=== PATIENT | male | born 1990 | race Caucasian/White ===

== ENCOUNTER → 2016-10-11 | Outpatient (CLI) | payer BC ==
[~2016-10-11] MED LIST: CLON1TAB3 PO; OXYSR10 PO
== END | disposition home or self-care (01) ==
LOC: C.LAB 17:48
PROVIDERS: ATTEND Psychiatry & Neurology Psychiatry
DX: F11.20 Opioid dependence, uncomplicated (principal)

== ENCOUNTER → 2017-01-14 | Outpatient (CLI) | payer BC ==
[2017-01-14 19:45] LABS: BENZODIAZEPINE, URINE NEG (NEG); COCAINE,URINE NEG (NEG); PHENCYCLIDINE, URINE NEG (NEG)
[2017-01-17 12:17] LABS: NORBUPRENORPHINE QNT 110 NG/ML (CUTOFF=2)
--- NOTE | 2017-01-18 10:12 | CODING QUERY MEDICAL NECESSITY ---
CQSUPPORTING DIAGNOSIS NEEDED A supporting diagnosis is required for the test/procedure performed on this patient in order for us to be reimbursed by the patient's insurance. Please provide a supporting diagnosis for the following test/procedure listed below next to the test name along with your signature. *If there is no additional diagnosis for this patient that would support the following test/procedure please document that below next to the test/procedure. Test(s)/Procedure(s) that require a supporting diagnosis: DOS 01/14/17 VITAMIN D TEST Provider Signature: Date: Thank you Katherine Farmer Health Information Management Once completed, please kindly fax back to [phone] For questions please call [phone]
== END ==
LOC: C.LAB 18:39
PROVIDERS: ATTEND Psychiatry & Neurology Psychiatry
DX: F33.1 Major depressive disorder, recurrent, moderate (principal); F11.20 Opioid dependence, uncomplicated; E03.9 Hypothyroidism, unspecified

== ENCOUNTER → 2017-07-04 | Outpatient (CLI) | payer BC ==
[2017-07-04 15:53] LABS: BENZODIAZEPINE, URINE NEG (NEG); COCAINE,URINE NEG (NEG); PHENCYCLIDINE, URINE NEG (NEG)
== END | disposition home or self-care (01) ==
LOC: C.LAB 14:07
PROVIDERS: ATTEND Psychiatry & Neurology Psychiatry
DX: Z51.81 Encounter for therapeutic drug level monitoring (principal); F11.20 Opioid dependence, uncomplicated; Z79.899 Other long term (current) drug therapy

== ENCOUNTER → 2017-07-29 | Outpatient (CLI) | payer BC | END | disposition home or self-care (01) | LOC: C.LAB 16:38 | PROVIDERS: ATTEND Psychiatry & Neurology Psychiatry | DX: F11.20 Opioid dependence, uncomplicated (principal) ==

== ENCOUNTER → 2017-11-15 | Outpatient (CLI) | payer OTHER ==
[2017-11-15 19:50] LABS: TOTAL PROTEIN 7.5 gm/dl (6.4-8.2)
== END | disposition home or self-care (01) ==
LOC: C.LAB 18:17
PROVIDERS: ATTEND Psychiatry & Neurology Psychiatry
DX: F11.20 Opioid dependence, uncomplicated (principal); Z79.899 Other long term (current) drug therapy

== ENCOUNTER 2024-01-02 21:55 | Inpatient (IN) ==
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
[2024-01-02] MEDS: HALOPERIDOL LACTATE 5 MG/ML 1 ML VIAL IM STA (22:55)
[2024-01-02] MEDS: LORazepam 2 MG/1 ML VIAL IM STA (22:55)
[2024-01-02] MEDS: diphenhydrAMINE 50 MG/ML VIAL IM STA (22:55)
[2024-01-02] MEDS: HALOPERIDOL LACTATE 5 MG/ML 1 ML VIAL ONE (23:02)
[2024-01-02] MEDS: diphenhydrAMINE 50 MG/ML VIAL ONE (23:02)
[2024-01-02] MEDS: LORazepam 1 MG/1 ML SYR ED Inj Use ONE (23:02)
[2024-01-02] MEDS: LORazepam 1 MG TAB SL STA (23:02)
[2024-01-03 00:29] LABS: Basophils # (auto) 0.02 K/uL (0.00-0.20); Basophils % (auto) 0.3 %; Eosinophils # (auto) 0.02 K/uL (0.00-0.50); Eosinophils % (auto) 0.3 %; Hemoglobin 16.4 g/dl (14.0-18.0); Immature Granulocytes # (auto) 0.01 K/uL (0.01-0.20); Immature Granulocytes % (auto) 0.2 %; Lymphocytes # (auto) 1.16 K/uL (1.20-3.40); Mean Corpuscular Hemoglobin 31.8 pg (25.0-34.0); Mean Corpuscular Hgb Conc 34.2 g/dL (32.0-36.0); Mean Corpuscular Volume 93.2 fL (80.0-100.0); Mean Platelet Volume 9.2 fL (9.4-12.4); Monocytes # (auto) 0.55 K/uL (0.11-0.59); Monocytes % (auto) 8.6 %; Neutrophils # (auto) 4.67 K/uL (1.40-6.50); Neutrophils % (auto) 72.6 %; Platelet Count 186 K/uL (130-400); RDW Coefficient of Variation 11.7 % (11.5-14.5); RDW Standard Deviation 40.4 fL (36.4-46.3); Red Blood Count 5.15 M/uL (4.70-6.10); White Blood Count 6.43 K/ul (4.8-10.8)
[2024-01-03 00:45] LABS: Albumin Globulin Ratio 1.8 (0.9-2); Albumin Level 4.2 gm/dl (3.4-5.0); BUN Creatinine Ratio 17.4 (10-20); Bilirubin,Total 0.8 mg/dl (0.2-1.0); Creatinine Clr Calc Pharmacy 98.2 ml/min; Est GFR (African American) 104.3 ml/min; Globulin 2.4 gm/dl (2.5-4.0); Potassium 3.4 mmol/L (3.5-5.1); Total Protein 6.6 gm/dl (6.0-8.3)
[2024-01-03 01:01] LABS: Thyroid Stimulating Hormone 3.18 uIu/ml (0.300-4.500)
[2024-01-03 01:18] LABS: Acetaminophen < 3 ug/ml (10-30); Salicylate < 3.0 mg/dl (3.0-30)
[2024-01-03 01:35] LABS: Appearance Urine Clear (Clear); Bilirubin Urine Negative (Negative); Blood Urine Negative (Negative); Color Urine Yellow; Glucose Urine UA Negative (Negative); Ketones Urine Negative (Negative); Leukocyte Esterase Urine Negative (Negative); Nitrite Urine Negative (Negative); Protein Urine Negative (Negative); Specific Gravity Urine 1.009 (1.000-1.030); Urobilinogen Urine Negative (Negative); pH Urine 5.5 (4.5-7.5)
[2024-01-03 01:54] LABS: Amphetamines+Metham, Urine Neg (Neg); Barbiturates, Urine Neg (Neg); Benzodiazepine, Urine Neg (Neg); Cocaine, Urine Neg (Neg); MDMA (Ecstacy), Urine Neg (Neg); Marijuana, Urine Neg (Neg); Methadone, Urine Neg (Neg); Opiate, Urine Neg (Neg); Phencyclidine, Urine Neg (Neg)
--- NOTE | 2024-01-03 08:33 | Emergency Department Note ---
ED Visit Note Patient signed out to me at change of shift from Dr. Rajan. Patient is a 302. He did require medication in order to help prevent any further escalation of his agitation and anxiety as he was uncooperative with staff and could not be verbally de-escalated or redirected. Following this he did sleep throughout my shift, vital signs otherwise stable. Patient was referred to [facility] for inpatient treatment, however psychiatry will evaluate the patient in the morning to determine appropriate placement. Patient signed out to Dr. Steele in the morning. .
[2024-01-03] MEDS ORDERED: SODIUM CHLORIDE 0.65% NA SOLN 45 ML (OCEAN) PRN (11:19)
[2024-01-03] MEDS ORDERED: hydrOXYzine HCl 25 MG TAB PO PRN ×2 (11:19)
[2024-01-03] MEDS ORDERED: BISMUTH SUBSALICYLATE LIQD 236 ML PO PRN (11:19)
[2024-01-03] MEDS ORDERED: ACETAMINOPHEN 325 MG TAB PO PRN (11:19)
[2024-01-03] MEDS ORDERED: MAGNESIUM HYDROXIDE SUSP 30 ML UDC PO PRN (11:19)
--- NOTE | 2024-01-03 11:19 | Emergency Department Note ---
ED Visit Note The patient was taken in signout from Dr. Schaefer at the change of shift. Please see that note for details. The patient was pending admission on a 302 warrant. Patient was evaluated. He was calm. He had questions about the process. I did inform him that he would need to be evaluated by psychiatry as an inpatient status and explained the 302 process. I gave my usual and customary discussion regarding this issue. Patient was evaluated by the [facility] psychiatric team in the emergency department. Patient was accepted for [facility] mental health inpatient treatment. .
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
[2024-01-03] MEDS: MAGNESIUM OXIDE 400 MG TAB PO SCH (21:53)
[2024-01-04] MEDS ORDERED: diphenhydrAMINE 50 MG/ML VIAL IM PRN (10:19)
[2024-01-04] MEDS ORDERED: LORazepam 2 MG/1 ML VIAL IM PRN (10:19)
[2024-01-04] MEDS ORDERED: HALOPERIDOL LACTATE 5 MG/ML 1 ML VIAL IM PRN (10:19)
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
[2024-01-05] MEDS: CEROVITE ADV FORMULA TAB PO SCH (08:34)
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
--- NOTE | 2024-01-06 09:17 | Psychiatric Progress Note ---
Date of Service January 06, 2024 Impression / Recommendations Impression Victorina is a 33 man with a history of depression, anxiety, substance use, trauma and possible paranoia with fixation on topics involving Hitler and WWII over the last 8-10 years who has become increasingly religiously preoccupied with delusions about a romantic partner and racist statements with a stockpile of weapons resulting in his parents filing a PFA against him admitted on a 302 involuntary commitment (Initialized on 01/03/24 10:52), which if not extended, will on 01/07/24 at 2231. Diagnostically uncertain but differential for unspecified psychosis is broad including schizophrenia vs mood episode of johanna vs substance induced or withdrawal (though he denies any recent use and UDS negative) vs ASD vs fixed delusional disorder. 01/05/2024:Presentation remains most consistent with unspecified psychosis. Unclear if schizotypal personality disorder component given reports of more chronic difficulty attending to his hygiene and basic needs vs MDD with psychotic features vs schizophrenia vs mixed mood episode vs delusional disorder. Collateral information notable for his recent statements of paranoia and delusions including: "We are pure white not half [place] these filthy race traitors tried to put a curse on me by naming me Mohamed" as well as making statements suggestive of possible violence or retaliation such as stating in a text that "they are definitely going to pay for this" seemingly referencing his parents. Also made statements which are concerning in the context of his sudden hyperreligious beliefs and fixation on guns and ammunition saying "I have no fear" and "I killed my fear". Seems that his complex trauma response may be leading him to feel a need to protect himself and his future family versus secondary to paranoia and delusions about what it means to be a romantic partner or male role in a family versus delusional disorder with paranoia given he had reported hearing messages from God about his need to protect himself and his future family. Given that he has purchased weapons and recently bought a ring, even though he has no partner, it raises concern for what other actions he may take in response to auditory hallucinations/delusions about temple messages p articularly in context of paranoia and increased focus on race and beliefs that certain populations, i.e. those of white race, have been mistreated. Overall given these ongoing concerns about elevated acute violence risk and his lack of insight and lack of interest in any type of medication treatment a 303 commitment was completed due to concern for harm to others and potentially himself. MNPR due to recent racist statements, delusions and concern for violence potential given current PFA Overall, I spent a total of 110 minutes on this case including meeting with the patient, reviewing the chart, nursing report, multidisciplinary team meeting, orders, documentation, completing 303 commitment paperwork and listening to collateral from patient's sister. (1) Unspecified psychosis not due to a substance or known physiological condition: (2) Paranoia: (3) Tic disorder: Plan 01/06/2024: -303 commitment paperwork completed, hearing to be held tomorrow -Continue to recommend antipsychotic medication trial, he declines this 01/05/2024: -Recommended trial of olanzapine, he refuses this and no behaviors to meet threshold for medication over objection 01/04/2024: -Declines starting any psychiatric medication -Haldol, Benadryl and Ativan IM prn ordered in case of behavioral emergency for agitation/aggression -Multivitamin started 01/03/2024: The patient was admitted to the [facility] ([facility] unit) on q15 min checks (behavioral with suicide precautions) for safety. The patient will participate in group, recreational, and milieu therapies and will be offered additional individual and family sessions as clinically appropriate. The patient remains hospitalized on a completed 302 involuntary commitment (Initialized on 01/03/24 10:52), which if not extended, will on 01/07/24 at 2231. Suicide Risk Level Suicide Risk Level: Moderate (q15 min suicide checks) (He denies any SI but recent behavior changes and delusions increase risk) Risk Factors Assessment Male: Yes : Yes Do You Have Access To A Gun?: Yes ("police took them for now") Mental Health Diagnoses: Yes Protective Factors Assessment Employed: No Interval History Identifying Information VICTORINA FRANK is a 33-year-old M who currently lives in with his parents has an unclear psychiatric history, brought in by police on a warrant and was admitted on 01/03/24 10:49 on a 302/ involuntary commitment for concerning statements and behaviors including having a large amount of weapons. Chief Complaint "I don't want to take any medication". Review of Systems Sleep Information Total Hours of Sleep: 6 Sleep Comments: No PRN medications Meal Information Percent Meal Consumed - Breakfast: 100 Percent Meal Consumed - Lunch: 100 Percent Meal Consumed - Dinner: 100 Subjective Subjective Patient was seen & assessed and interval progress reviewed with treatment team nursing and social work. Has been interacting with his peers appropriately. Woke up around 5AM but then went back to sleep. Declined to sign any paperwork related to his treatment plan or consent for hospital treatment as he doesn't feel he should be in the hospital. Today discussed that I would be filing for 303 commitment and he was provided with his rights and information for public health technologist's office. He would like to participate in the hearing tomorrow. Continues to feel that he is not experiencing any delusions or paranoia or psychosis. Does not want to take any medication. Thanks me for meeting with him. Physical Exam Psychiatric Orientation: alert and oriented x 3 Apperance: appropriately dressed Eye Contact: good eye contact Motor Behavior: + abnormal motor movements (mouth and neck tic) Speech: normal rate/rhythm/volume of speech Affect: + mood not congruent with affect (smiles oddly) Mood: no irritable mood Thought Process: + circumstantial thought process Thought Content: + paranoid and + delusions (hyperreligious, believes getting messages from God) Suicidal Thoughts: denies suicidal thoughts Homicidal Thoughts: denies homicidal thoughts (but recently made concerning statements and fixated on race) Hallucinations: no auditory hallucinations and no visual hallucinations Insight: + severely impaired insight Judgment: + limited judgement Vital Signs (Past 24 Hours) Last Vital Signs Temp 36.9 C 01/06/24 06:45 Pulse 82 01/06/24 06:47 Resp 18 01/06/24 06:45 BP 145/87 H 01/06/24 06:47 Pulse Ox 99 01/05/24 06:00 O2 Del Method Room Air 01/05/24 06:00 Results & Data ([facility]) Current Inpatient Medications Current Inpatient Medications: Current Inpatient Medications Acetaminophen (Acetaminophen 325 Mg Tab) 650 mg PO Q4H PRN PRN Reason: Headache or Minor Fever Stop: 02/02/24 11:18 Al Hydrox/Mg Hydrox/Simethicone (Aluminum/Magnesium Susp 30 Ml Udc) 30 ml PO Q4H PRN PRN Reason: GI Upset Stop: 02/02/24 11:18 Bismuth Subsalicylate (Bismuth Subsalicylate Liqd 236 Ml) 15 ml PO PRN PRN PRN Reason: Loose Stool Stop: 02/02/24 11:18 Diphenhydramine HCl (Diphenhydramine 50 Mg/Ml Vial) 50 mg IM BID PRN PRN Reason: Agitation Stop: 02/03/24 10:18 Haloperidol Lactate (Haloperidol Lactate 5 Mg/Ml 1 Ml Vial) 5 mg IM BID PRN PRN Reason: Agitation Stop: 02/03/24 10:18 Hydroxyzine HCl (Hydroxyzine Hcl 25 Mg Tab) 50 mg PO HSZ PRN PRN Reason: Insomnia Stop: 02/02/24 11:18 Hydroxyzine HCl (Hydroxyzine Hcl 25 Mg Tab) 25 mg PO Q4H PRN PRN Reason: Anxiety Stop: 02/02/24 11:18 Lorazepam (Lorazepam 2 Mg/1 Ml Vial) 2 mg IM BID PRN PRN Reason: Agitation Stop: 02/03/24 10:18 Magnesium Hydroxide (Magnesium Hydroxide Susp 30 Ml Udc) 30 ml PO DAILY PRN PRN Reason: Constipation Stop: 02/02/24 11:18 Magnesium Oxide (Magnesium Oxide 400 Mg Tab) 400 mg PO HS KARLEY Stop: 02/02/24 21:59 Last Admin: 01/05/24 21:02 Dose: 400 mg Multivitamins/Minerals (Cerovite Adv Formula Tab) 1 tab PO QAM KARLEY Stop: 02/04/24 08:59 Last Admin: 01/06/24 08:37 Dose: 1 tab Sodium Chloride (Sodium Chloride 0.65% Na Soln 45 Ml ([place])) 1 - 2 sprays NA PRN PRN PRN Reason: Nasal Dryness/Congestion Stop: 02/02/24 11:18 Mental Health & Subst Abuse Tx Psychiatrist Name of Psychiatrist: Dr Savage Psychiatrist's Therapist Name of Therapist: None Yarn Finisher Name of Yarn Finisher: None Post Discharge Appointments Primary Care Physician Name Of Family Doctor/PCP: N/A Contact Information Discharge Discharge Address: [address] [place] [id number]
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
--- NOTE | 2024-01-08 09:10 | Psychiatric Progress Note ---
Date of Service January 08, 2024 Impression / Recommendations Vishal Ordonez is a 33 man with a history of depression, anxiety, substance use, trauma and possible paranoia with fixation on topics involving Hitler and WWII over the last 8-10 years who has become increasingly religiously preoccupied with delusions about a romantic partner and racist statements with a stockpile of weapons resulting in his parents filing a PFA against him admitted on a 302 involuntary commitment and now on a 303 commitment. Diagnostically uncertain but differential for unspecified psychosis is broad including schizophrenia vs mood episode of johanna vs substance induced or withdrawal (though he denies any recent use and UDS negative) vs ASD vs delusional disorder vs complex PTSD vs schizotypal personality disorder. 01/08/2024: Ongoing odd statements, paranoia and preoccupation with Nazi [place]. Ongoing psychotic process with high risk for violence, continue to monitor patient's behavior, thoughts, and interactions with others. He continues to refuse antipsychotic medication. Continue to re-evaluate for criteria for medication over objection, doesn't meet criteria currently. Ongoing motivational interviewing regarding medication and insight-oriented and open dialogue approach. Poor judgment and boundary issues addressed, the issue of inappropriate Nazi symbolism in the group room discussed; patient agreed not to display such items in shared spaces. Continue to monitor patient's interactions with others and provide guidance on maintaining appropriate boundaries. We'll continue to educate the patient as needed on the potential impact of their actions on other patients and the importance of creating a safe environment for all. MNPR due to recent racist statements, delusions and concern for violence potential given current PFA Overall, I spent a total of 35 minutes on this case including meeting with the patient, reviewing the chart, nursing report, multidisciplinary team meeting, orders, and documentation. (1) Unspecified psychosis not due to a substance or known physiological condition: (2) Paranoia: (3) Tic disorder: Plan 01/08/2024: Continues to refuse antipsychotic medication trial. 01/07/2024: He continues to refuse antipsychotic medication trial which is the recommendation. 01/06/2024: -303 commitment paperwork completed, hearing to be held tomorrow -Continue to recommend antipsychotic medication trial, he declines this 01/05/2024: -Recommended trial of olanzapine, he refuses this and no behaviors to meet threshold for medication over objection 01/04/2024: -Declines starting any psychiatric medication -Haldol, Benadryl and Ativan IM prn ordered in case of behavioral emergency for agitation/aggression -Multivitamin started 01/03/2024: The patient was admitted to the [facility] ([facility]) on q15 min checks (behavioral with suicide precautions) for safety. The patient will participate in group, recreational, and milieu therapies and will be o ffered additional individual and family sessions as clinically appropriate. The patient remains hospitalized on a completed 302 involuntary commitment (Initialized on 01/03/24 10:52), which if not extended, will on 01/07/24 at 2231. Suicide Risk Level Suicide Risk Level: Moderate (q15 min suicide checks) (He denies any SI but re cent behavior changes and delusions increase risk) Risk Factors Assessment Male: Yes : Yes Do You Have Access To A Gun?: Yes ("police took them for now") Mental Health Diagnoses: Yes Protective Factors Assessment Employed: No Interval History Identifying Information VICTORINA FRANK is a 33-year-old M who currently lives in with his parents has an unclear psychiatric history, brought in by police on a warrant and was admitted on 01/03/24 10:49 on a 302/ involuntary commitment for concerning statements and behaviors including having a large amount of weapons. Chief Complaint "Yeah it's a World War II seal. It's just art". Review of Systems Sleep Information Total Hours of Sleep: 5.75 Sleep Comments: No PRN medications Meal Information Percent Meal Consumed - Breakfast: 90 Percent Meal Consumed - Lunch: 100 Percent Meal Consumed - Dinner: 100 Subjective Subjective Patient was seen & assessed and interval progress reviewed with treatment team nursing and social work. Yesterday evening asking nurse for her badge so he could leave unit. Had a visitor from his anglican. Poor boundaries with female peer. Refused to sign his treatment team paperwork. He reports having slept well the previous night but appears tired. He expresses concern about feeling locked up due to his political beliefs. He acknowledges drawing on an origami animal with Nazi symbols and claims it is just art. He is willing to discuss the potential impact of his actions on others but doesn't see how this could be upsetting to others. When he is asked "Have you thought about how that might affect someone who is Adventism?" he replies "We could talk about it" and then agrees not to place such items in the group room. However he then asks if he is being kept for his political beliefs. Again discuss concerns for psychosis and paranoia and violence risk as reason for his hospitalization. He questions the need for antipsychotic medication and seeks clarification on the changes that would be observed if he took it. He continues to feel he is not experiencing any paranoia nor behavior changes nor delusions and that all recent changes are due to "My behavior changed because I defeated a lot of anxieties that were paralyzing me." He denies any inappropriate interactions with others though we discuss he seemed to have poor boundaries with a female peer yesterday which he disagrees with. He remains fixated on discharge and expresses disagreement with my assessment. Physical Exam Psychiatric Orientation: alert and oriented x 3 Apperance: appropriately dressed Eye Contact: good eye contact Motor Behavior: + abnormal motor movements (mouth and neck tic) Speech: normal rate/rhythm/volume of speech Affect: + mood not congruent with affect (smiles oddly) Mood: + irritable mood Thought Process: + circumstantial thought process Thought Content: + preoccupation ([place], Nazi and white supremacy themes), + paranoid and + delusions (hyperreligious) Suicidal Thoughts: denies suicidal thoughts Homicidal Thoughts: denies homicidal thoughts (but recently made concerning statements and fixated on race) Hallucinations: no auditory hallucinations and no visual hallucinations Insight: + severely impaired insight Judgment: + limited judgement Vital Signs (Past 24 Hours) Last Vital Signs Temp 36.8 C 01/08/24 06:34 Pulse 76 01/08/24 06:34 Resp 18 01/08/24 06:34 BP 147/85 H 01/08/24 06:34 Pulse Ox 99 01/05/24 06:00 O2 Del Method Room Air 01/05/24 06:00 Results & Data ([facility]) Current Inpatient Medications Current Inpatient Medications: Current Inpatient Medications Acetaminophen (Acetaminophen 325 Mg Tab) 650 mg PO Q4H PRN PRN Reason: Headache or Minor Fever Stop: 02/02/24 11:18 Al Hydrox/Mg Hydrox/Simethicone (Aluminum/Magnesium Susp 30 Ml Udc) 30 ml PO Q4H PRN PRN Reason: GI Upset Stop: 02/02/24 11:18 Bismuth Subsalicylate (Bismuth Subsalicylate Liqd 236 Ml) 15 ml PO PRN PRN PRN Reason: Loose Stool Stop: 02/02/24 11:18 Diphenhydramine HCl (Diphenhydramine 50 Mg/Ml Vial) 50 mg IM BID PRN PRN Reason: Agitation Stop: 02/03/24 10:18 Haloperidol Lactate (Haloperidol Lactate 5 Mg/Ml 1 Ml Vial) 5 mg IM BID PRN PRN Reason: Agitation Stop: 02/03/24 10:18 Hydroxyzine HCl (Hydroxyzine Hcl 25 Mg Tab) 50 mg PO HSZ PRN PRN Reason: Insomnia Stop: 02/02/24 11:18 Hydroxyzine HCl (Hydroxyzine Hcl 25 Mg Tab) 25 mg PO Q4H PRN PRN Reason: Anxiety Stop: 02/02/24 11:18 Lorazepam (Lorazepam 2 Mg/1 Ml Vial) 2 mg IM BID PRN PRN Reason: Agitation Stop: 02/03/24 10:18 Magnesium Hydroxide (Magnesium Hydroxide Susp 30 Ml Udc) 30 ml PO DAILY PRN PRN Reason: Constipation Stop: 02/02/24 11:18 Magnesium Oxide (Magnesium Oxide 400 Mg Tab) 400 mg PO HS KARLEY Stop: 02/02/24 21:59 Last Admin: 01/07/24 21:19 Dose: 400 mg Multivitamins/Minerals (Cerovite Adv Formula Tab) 1 tab PO QAM KARLEY Stop: 02/04/24 08:59 Last Admin: 01/08/24 08:52 Dose: 1 tab Sodium Chloride (Sodium Chloride 0.65% Na Soln 45 Ml ([place])) 1 - 2 sprays NA PRN PRN PRN Reason: Nasal Dryness/Congestion Stop: 02/02/24 11:18 Mental Health & Subst Abuse Tx Psychiatrist Name of Psychiatrist: Dr Savage Psychiatrist's Therapist Name of Therapist: None Controller [place] Name of Controller [place]: None Post Discharge Appointments Primary Care Physician Name Of Family Doctor/PCP: N/A Contact Information Discharge Discharge Address: [address] [place] [address], [id number]
--- NOTE | 2024-01-09 08:55 | Psychiatric Progress Note ---
Date of Service January 09, 2024 Impression / Recommendations Vishal Ordonez is a 33 man with a history of depression, anxiety, substance use, trauma and possible paranoia with fixation on topics involving Hitler and WWII over the last 8-10 years who has become increasingly religiously preoccupied with delusions about a romantic partner and racist statements with a stockpile of weapons resulting in his parents filing a PFA against him admitted on a 302 involuntary commitment and now on a 303 commitment. Diagnostically uncertain but differential for unspecified psychosis is broad including schizophrenia vs mood episode of johanna vs substance induced or withdrawal (though he denies any recent use and UDS negative) vs ASD vs delusional disorder vs complex PTSD vs schizotypal personality disorder. 01/09/2024: Continues to have paranoia, which is more prominent during our conversation today, and seems to be increasing as his irritability increases due to ongoing hospitalization. Continues to refuse to consider any antipsychotic medication. Discussed options including but not limited to abilify and olanzapine. He declined all options we discussed. Discussed that I would be starting olanzapine and that he can refuse if he chooses to. Reviewed side effects including but not limited to: sedation, weight gain, metabolic side effects, movement side effects. If he becomes agreeable to consistently taking this will order fasting glucose and lipid panel and complete AIMS, currently he is very suspicious of bloodwork. MNPR due to recent racist statements, delusions and concern for violence potential given current PFA Overall, I spent a total of 40 minutes on this case including meeting with the patient, reviewing the chart, nursing report, multidisciplinary team meeting, orders, and documentation. (1) Unspecified psychosis not due to a substance or known physiological condition: (2) Paranoia: (3) Tic disorder: Plan 01/09/2024: -Consult placed for pastoral care -Starting olanzapine ODT 5mg HS 01/08/2024: Continues to refuse antipsychotic medication trial. 01/07/2024: He continues to refuse antipsychotic medication trial which is the recommendation. 01/06/2024: -303 commitment paperwork completed, hearing to be held tomorrow -Continue to recommend antipsychotic medication trial, he declines this 01/05/2024: -Recommended trial of olanzapine, he refuses this and no behaviors to meet threshold for medication over objection 01/04/2024: -Declines starting any psychiatric medication -Haldol, Benadryl and Ativan IM prn ordered in case of behavioral emergency for agitation/aggression -Multivitamin started 01/03/2024: The patient was admitted to the [facility] ([facility] mental health unit) on q15 min checks (behavioral with suicide precautions) for safety. The patient will participate in group, recreational, and milieu therapies and will be offered additional individual and family sessions as clinically appropriate. The patient remains hospitalized on a completed 302 involuntary commitment (Initialized on 01/03/24 10:52), which if not extended, will on 01/07/24 at 2231. Suicide Risk Level Suicide Risk Level: Moderate (q15 min suicide checks) (He denies any SI but recent behavior changes and delusions increase risk) Risk Factors Assessment Male: Yes : Yes Do You Have Access To A Gun?: Yes ("police took them for now") Mental Health Diagnoses: Yes Protective Factors Assessment Employed: No Interval History Identifying Information VICTORINA FRANK is a 33-year-old M who currently lives in with his parents has an unclear psychiatric history, brought in by police on a warrant and was admitted on 01/03/24 10:49 on a 302/ involuntary commitment for concerning statements and behaviors including having a large amount of weapons. Chief Complaint "Not too bad". Review of Systems Sleep Information Total Hours of Sleep: 5.75 Sleep Comments: No PRN medications Meal Information Percent Meal Consumed - Breakfast: 100 Percent Meal Consumed - Lunch: 100 Percent Meal Consumed - Dinner: 100 Subjective Subjective Patient was seen & assessed and interval progress reviewed with treatment team nursing and social work. This morning irritable with RN. He reports feeling restless and confined on the unit, expressing a desire to have his cell phone with him. Reviewed again that this is against unit policy but that we would be happy to provide him with any phone numbers he needs. He inquires about ordering personal items like clothes, books and CDs to be delivered from [facility] during his stay. He discusses his history of sleep issues and use of medication for sleep induction in the past. He recalls a period when he stopped dreaming while on those medications and felt the quality of sleep was poor. Currently he reports difficulty achieving a full night's sleep but feels the quality is normal when he does sleep. Patient expresses dislike for antipsychotic medications and is not interested in starting any. I reviewed various options within the class for which he was not interested, discussed that I will be ordering olanzapine and that it is his right to decline this if he chooses to do so. He is also seeking legal representation for an upcoming PFA hearing, having reached out to multiple hoop expander but not secured one yet. Patient is aware he will likely miss the hearing due to hospitalization and plans to discuss options with associate professor of counseling. Reviewed that we could help provide him with any numbers for hoop expander or legal contracts specialist offices should he desire this. He also asked to speak with the hospital civil attorney who represented the hospital during his 303 commitment. Discussed with him that this was a conflict of interest and that he should reach out to his public relations intern, for whom he has the number, or we could provide him with other laywers contact information should he choose to hire his own representation. He asks me if I have been looking in his journal, when told no, he tells me he asked because he felt items in his room had been moved. Also attempts to query me about another patient who he believed may have been Yazidi and tells me "I shook his hand when he left". Wonders if not everyone is being "open" and asked to expand tells me this is because he discovered he cannot attend the [employer] mission trip and feels like things are being kept from him. Asks me if I've spoken with the FBI. He also requests to speak with the group program manager and requested to speak with a Radiology Assistant. Offered for group program manager to meet with him and discussed I would place consult for Pastoral Care which he is appreciative of. Physical Exam Psychiatric Orientation: alert and oriented x 3 Apperance: appropriately dressed Eye Contact: good eye contact Motor Behavior: + abnormal motor movements (mouth and neck tic) Speech: normal rate/rhythm/volume of speech Affect: + mood not congruent with affect (smiles oddly) Mood: + irritable mood Thought Process: + circumstantial thought process Thought Content: + preoccupation ([place], Nazi and white supremacy themes), + paranoid and + delusions (hyperreligious) Suicidal Thoughts: denies suicidal thoughts Homicidal Thoughts: denies homicidal thoughts (but recently made concerning statements and fixated on race) Hallucinations: no auditory hallucinations and no visual hallucinations Insight: + severely impaired insight Judgment: + limited judgement Vital Signs (Past 24 Hours) Last Vital Signs Temp 36.5 C 01/09/24 04:41 Pulse 76 01/09/24 04:41 Resp 18 01/09/24 04:41 BP 128/84 01/09/24 04:43 Pulse Ox 95 01/09/24 04:41 O2 Del Method Room Air 01/09/24 04:41 Results & Data ([facility] [[email or web address] Current Inpatient Medications Current Inpatient Medications: Current Inpatient Medications Acetaminophen (Acetaminophen 325 Mg Tab) 650 mg PO Q4H PRN PRN Reason: Headache or Minor Fever Stop: 02/02/24 11:18 Al Hydrox/Mg Hydrox/Simethicone (Aluminum/Magnesium Susp 30 Ml Udc) 30 ml PO Q4H PRN PRN Reason: GI Upset Stop: 02/02/24 11:18 Bismuth Subsalicylate (Bismuth Subsalicylate Liqd 236 Ml) 15 ml PO PRN PRN PRN Reason: Loose Stool Stop: 02/02/24 11:18 Diphenhydramine HCl (Diphenhydramine 50 Mg/Ml Vial) 50 mg IM BID PRN PRN Reason: Agitation Stop: 02/03/24 10:18 Haloperidol Lactate (Haloperidol Lactate 5 Mg/Ml 1 Ml Vial) 5 mg IM BID PRN PRN Reason: Agitation Stop: 02/03/24 10:18 Hydroxyzine HCl (Hydroxyzine Hcl 25 Mg Tab) 50 mg PO HSZ PRN PRN Reason: Insomnia Stop: 02/02/24 11:18 Hydroxyzine HCl (Hydroxyzine Hcl 25 Mg Tab) 25 mg PO Q4H PRN PRN Reason: Anxiety Stop: 02/02/24 11:18 Lorazepam (Lorazepam 2 Mg/1 Ml Vial) 2 mg IM BID PRN PRN Reason: Agitation Stop: 02/03/24 10:18 Magnesium Hydroxide (Magnesium Hydroxide Susp 30 Ml Udc) 30 ml PO DAILY PRN PRN Reason: Constipation Stop: 02/02/24 11:18 Magnesium Oxide (Magnesium Oxide 400 Mg Tab) 400 mg PO HS KARLEY Stop: 02/02/24 21:59 Last Admin: 01/08/24 21:14 Dose: 400 mg Multivitamins/Minerals (Cerovite Adv Formula Tab) 1 tab PO QAM KARLEY Stop: 02/04/24 08:59 Last Admin: 01/09/24 08:31 Dose: 1 tab Sodium Chloride (Sodium Chloride 0.65% Na Soln 45 Ml ([place])) 1 - 2 sprays NA PRN PRN PRN Reason: Nasal Dryness/Congestion Stop: 02/02/24 11:18 Mental Health & Subst Abuse Tx Psychiatrist Name of Psychiatrist: Dr Savage Psychiatrist's Therapist Name of Therapist: None Courtesy Van Driver Name of Courtesy Van Driver: None Post Discharge Appointments Primary Care Physician Name Of Family Doctor/PCP: N/A Contact Information Discharge Discharge Address: [facility] [address] [facility], [address]
[2024-01-09] MEDS: ALUMINUM/MAGNESIUM SUSP 30 ML UDC PO PRN (13:05)
[2024-01-09] MEDS ORDERED: ACETAMINOPHEN 325 MG TAB PO PRN (17:08)
[2024-01-09] MEDS: OLANZapine ZYDIS 5 MG ORALLY DIS. TAB PO SCH (21:09)
--- NOTE | 2024-01-10 09:08 | Psychiatric Progress Note ---
Date of Service January 10, 2024 Impression / Recommendations Vishal Ordonez is a 33 man with a history of depression, anxiety, substance use, trauma and possible paranoia with fixation on topics involving Hitler and WWII over the last 8-10 years who has become increasingly religiously preoccupied with delusions about a romantic partner and racist statements with a stockpile of weapons resulting in his parents filing a PFA against him admitted on a 302 involuntary commitment and now on a 303 commitment. Diagnostically uncertain but differential for unspecified psychosis is broad including schizophrenia vs mood episode of johanna vs substance induced or withdrawal (though he denies any recent use and UDS negative) vs ASD vs delusional disorder vs complex PTSD vs schizotypal personality disorder. 01/10/2024: Continues to present with unspecified psychosis though behavior has been fairly organized. He prefers to independently manage logistics related to his PFA hearing on Saturday and was allowed use of the unit phone and nursing support via HELADIO to fax paperwork on his behalf. He refused scheduled olanzapine. Continues to minimize recent events and concern of others. Remains suspicious of signing any paperwork but did sign limited HELADIO to allow for court paperwork to be faxed. MNPR due to recent racist statements, delusions and concern for violence potential given current PFA Overall, I spent a total of 36 minutes on this case including meeting with the patient, reviewing the chart, nursing report, multidisciplinary team meeting, orders, and documentation. (1) Unspecified psychosis not due to a substance or known physiological condition: (2) Paranoia: (3) Tic disorder: Plan 01/10/2024: Continue olanzapine (he is refusing this) and treatment plan. 01/09/2024: -Consult placed for pastoral care -Starting olanzapine ODT 5mg HS 01/08/2024: Continues to refuse antipsychotic medication trial. 01/07/2024: He continues to refuse antipsychotic medication trial which is the recommendation. 01/06/2024: -303 commitment paperwork completed, hearing to be held tomorrow -Continue to recommend antipsychotic medication trial, he declines this 01/05/2024: -Recommended trial of olanzapine, he refuses this and no behaviors to meet threshold for medication over objection 01/04/2024: -Declines starting any psychiatric medication -Haldol, Benadryl and Ativan IM prn ordered in case of behavioral emergency for agitation/aggression -Multivitamin started 01/03/2024: The patient was admitted to the [facility] ([facility] [place] [facility]) on q15 min checks (behavioral with suicide precautions) for safety. The patient will participate in group, recreational, and milieu therapies and will be offered additional individual and family sessions as clinically appropriate. The patient remains hospitalized on a completed 302 involuntary commitment (Initialized on 01/03/24 10:52), which if not extended, will on 01/07/24 at 2231. Suicide Risk Level Suicide Risk Level: Moderate (q15 min suicide checks) (He denies any SI but recent behavior changes and delusions increase risk) Risk Factors Assessment Male: Yes : Yes Do You Have Access To A Gun?: Yes ("police took them for now") Mental Health Diagnoses: Yes Protective Factors Assessment Employed: No Interval History Identifying Information JOSÉ LUIS FRANK is a 33-year-old M who currently lives in with his parents has an unclear psychiatric history, brought in by police on a warrant and was admitted on 01/03/24 10:49 on a 302/ involuntary commitment for concerning statements and behaviors including having a large amount of weapons. Chief Complaint "Not bad". Review of Systems Sleep Information Total Hours of Sleep: 6.25 Sleep Comments: Pt observed awake a couple of times Meal Information Percent Meal Consumed - Breakfast: 100 Percent Meal Consumed - Lunch: 100 Percent Meal Consumed - Dinner: 90 Subjective Subjective Patient was seen & assessed and interval progress reviewed with treatment team nursing and social work. Spoke with Calibration Tester yesterday and asked him to call him Jonathan, has otherwise not brought up his preference for this name with anyone on the [facility]. Today I met with José Luis alongside GOLDIE. This morning he apparently called the [facility] and then spoke with an weblogic administrator and asked them to fax paperwork to the unit related to his PFA hearing on Saturday. States he explained to the weblogic administrator his situation of being in the hospital and not having legal representation and they told him he could fill out paperwork to send back to the court to try to get a "continuance". He declines offer to provide him with information for other legal representation options should he wish to call for local jboss developer/legal representation and feels comfortable managing the [facility] paperwork on his own. He agreed to sign an HELADIO as he requested that we fax his paperwork back to the windows vmware administrator. Reviewed that we could look into the option for him to join the hearing via Zoom from [facility] if he remains in the hospital if he signed an HELADIO; he declines this offer, prefers to call himself and plans to ask them of zoom option if his paperwork is not successful in having the hearing date changed. Continues to feel that he is not experiencing any type of psychosis. States "I don't think anyone is after me". However, we discuss my ongoing concerns about his sudden changes in behavior and what other possible explanations there could be. He describes his belief that paternity/23 and me testing will prove that he is not genetically related to his father and that his behavior changes have been purposeful and a "result of hard work to kill my anxiety". States he trusts this provider but that we must "agree to disagree". Discussed option of case management referral to have additional support after he leaves the hospital. He declines this for now but states he will consider it. Physical Exam Psychiatric Orientation: alert and oriented x 3 Apperance: appropriately dressed Eye Contact: good eye contact Motor Behavior: + abnormal motor movements (mouth and neck tic) Speech: normal rate/rhythm/volume of speech Affect: + mood not congruent with affect (smiles oddly) Mood: + irritable mood Thought Process: + circumstantial thought process Thought Content: + preoccupation ([place], Nazi and white supremacy themes), + paranoid and + delusions (hyperreligious) Suicidal Thoughts: denies suicidal thoughts Homicidal Thoughts: denies homicidal thoughts (but recently made concerning statements and fixated on race) Hallucinations: no auditory hallucinations and no visual hallucinations Insight: + severely impaired insight Judgment: + limited judgement Vital Signs (Past 24 Hours) Last Vital Signs Temp 36.3 C L 01/10/24 01:43 Pulse 79 01/10/24 01:43 Resp 16 01/10/24 01:43 BP 138/75 01/10/24 01:43 Pulse Ox 96 01/10/24 01:43 O2 Del Method Room Air 01/10/24 01:43 Results & Data ([facility]) Current Inpatient Medications Current Inpatient Medications: Current Inpatient Medications Acetaminophen (Acetaminophen 325 Mg Tab) 650 mg PO Q4H PRN PRN Reason: Headache or Minor Fever Stop: 02/02/24 11:18 Acetaminophen (Acetaminophen 325 Mg Tab) 650 mg PO Q4H PRN PRN Reason: Headache or Minor Fever Stop: 02/08/24 17:07 Al Hydrox/Mg Hydrox/Simethicone (Aluminum/Magnesium Susp 30 Ml Udc) 30 ml PO Q4H PRN PRN Reason: GI Upset Stop: 02/02/24 11:18 Last Admin: 01/09/24 13:05 Dose: 30 ml Bismuth Subsalicylate (Bismuth Subsalicylate Liqd 236 Ml) 15 ml PO PRN PRN PRN Reason: Loose Stool Stop: 02/02/24 11:18 Diphenhydramine HCl (Diphenhydramine 50 Mg/Ml Vial) 50 mg IM BID PRN PRN Reason: Agitation Stop: 02/03/24 10:18 Haloperidol Lactate (Haloperidol Lactate 5 Mg/Ml 1 Ml Vial) 5 mg IM BID PRN PRN Reason: Agitation Stop: 02/03/24 10:18 Hydroxyzine HCl (Hydroxyzine Hcl 25 Mg Tab) 50 mg PO HSZ PRN PRN Reason: Insomnia Stop: 02/02/24 11:18 Hydroxyzine HCl (Hydroxyzine Hcl 25 Mg Tab) 25 mg PO Q4H PRN PRN Reason: Anxiety Stop: 02/02/24 11:18 Lorazepam (Lorazepam 2 Mg/1 Ml Vial) 2 mg IM BID PRN PRN Reason: Agitation Stop: 02/03/24 10:18 Magnesium Hydroxide (Magnesium Hydroxide Susp 30 Ml Udc) 30 ml PO DAILY PRN PRN Reason: Constipation Stop: 02/02/24 11:18 Magnesium Oxide (Magnesium Oxide 400 Mg Tab) 400 mg PO HS KARLEY Stop: 02/02/24 21:59 Last Admin: 01/09/24 21:07 Dose: 400 mg Multivitamins/Minerals (Cerovite Adv Formula Tab) 1 tab PO QAM K[facility]LEY Stop: 02/04/24 08:59 Last Admin: 01/10/24 08:48 Dose: 1 tab Olanzapine (Olanzapine Zydis 5 Mg Orally Dis. Tab) 5 mg PO HS K[facility]LEY Stop: 02/08/24 21:59 Last Admin: 01/09/24 21:09 Dose: Not Given Sodium Chloride (Sodium Chloride 0.65% Na Soln 45 Ml ([place])) 1 - 2 sprays NA PRN PRN PRN Reason: Nasal Dryness/Congestion Stop: 02/02/24 11:18 Mental Health & Subst Abuse Tx Psychiatrist Name of Psychiatrist: Dr Savage Psychiatrist's Therapist Name of Therapist: None [employer] Name of [employer]: None Post Discharge Appointments Primary Care Physician Name Of Family Doctor/PCP: N/A Contact Information Discharge Discharge Address: [facility] [place] [facility], [id number]
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
--- NOTE | 2024-01-12 13:01 | Psychiatric Progress Note ---
Date of Service January 12, 2024 Impression / Recommendations Vishal Ordonez is a 33 man with a history of depression, anxiety, substance use, trauma and possible paranoia with fixation on topics involving Hitler and WWII over the last 8-10 years who has become increasingly religiously preoccupied with delusions about a romantic partner and racist statements with a stockpile of weapons resulting in his parents filing a PFA against him admitted on a 302 involuntary commitment and now on a 303 commitment. Diagnostically uncertain but concern for primary psychotic disorder and cluster A and B personality traits given on-going delusional thoughts and manipulation. 01/12/2024: Remains focused on discharge. Minimizes his problems and others concerns. Presents some future oriented details including an apartment lease he signed for April. Educated about Zyprexa and potential benefits; continues to refuse. Recommend outpatient f/u to address insomnia. MNPR due to recent racist statements, delusions and concern for violence potential given current PFA (1) Unspecified psychosis not due to a substance or known physiological condition: (2) Paranoia: (3) Tic disorder: Plan 01/12/2024: Continue olanzapine (he is refusing this) and treatment plan. 01/11/2024: Continue olanzapine (he is refusing this) and treatment plan. 01/10/2024: Continue olanzapine (he is refusing this) and treatment plan. 01/09/2024: -Consult placed for pastoral care -Starting olanzapine ODT 5mg HS 01/08/2024: Continues to refuse antipsychotic medication trial. 01/07/2024: He continues to refuse antipsychotic medication trial which is the recommendation. 01/06/2024: -303 commitment paperwork completed, hearing to be held tomorrow -Continue to recommend antipsychotic medication trial, he declines this 01/05/2024: -Recommended trial of olanzapine, he refuses this and no behaviors to meet threshold for medication over objection 01/04/2024: -Declines starting any psychiatric medication -Haldol, Benadryl and Ativan IM prn ordered in case of behavioral emergency for agitation/aggression -Multivitamin started 01/03/2024: The patient was admitted to the [facility] ([facility] mental health unit) on q15 min checks (behavioral with suicide precautions) for safety. The patient will participate in group, recreational, and milieu therapies and will be offered additional individual and family sessions as clinically appropriate. The patient remains hospitalized on a completed 302 involuntary commitment (Initialized on 01/03/24 10:52), which if not extended, will on 01/07/24 at 2231. Suicide Risk Level Suicide Risk Level: Moderate (q15 min suicide checks) (He denies any SI but recent behavior changes and delusions increase risk) Risk Factors Assessment Male: Yes : Yes Do You Have Access To A Gun?: Yes ("police took them for now") Mental Health Diagnoses: Yes Protective Factors Assessment Employed: No Interval History Identifying Information VICTORINA FRANK is a 33-year-old M who currently lives in with his parents has an unclear psychiatric history, brought in by police on a warrant and was admitted on 01/03/24 10:49 on a 302/ involuntary commitment for concerning statements and behaviors including having a large amount of weapons. Chief Complaint "[]". Review of Systems Sleep Information Total Hours of Sleep: 4.25 Sleep Comments: Pt observed awake a couple of times Meal Information Percent Meal Consumed - Breakfast: 100 Percent Meal Consumed - Lunch: 100 Percent Meal Consumed - Dinner: 100 Subjective Subjective Patient was seen & assessed and interval progress reviewed with nursing and social work. Overnight: VSS. No new labs. Disrupted sleep. Upon interview, pt reports being here against his will. Minimizes sleep problems stating it used to be worse. Reports having trouble ignoring noises when he goes to sleep such as the air conditioner, washer/dryer, etc. Reports plans to get a hotel when he leaves and f/u with case management coordinator. Wants to spend time with friends and go to [employer]. Reports goals of having stable finances. Reports willingness to reconcile with his mother but not his father. Says they are very controlling of him. Reports good self care now and states his self care was poor in the past. Says he felt like a "Slave" under his parents before but now feels free. Denies SI, HI, AVH. Physical Exam Psychiatric Orientation: alert and oriented x 3 Apperance: appropriately dressed Eye Contact: good eye contact Motor Behavior: + abnormal motor movements (mouth and neck tic) Speech: normal rate/rhythm/volume of speech Affect: + constricted affect; + mood not congruent with affect (smiles oddly) "ok" Thought Process: + circumstantial thought process and + perseveration Thought Content: + preoccupation (1st amendment rights, parents lying to him), + paranoid and + delusions (hyperreligious) Suicidal Thoughts: denies suicidal thoughts Homicidal Thoughts: denies homicidal thoughts (but recently made concerning statements and fixated on race) Hallucinations: no auditory hallucinations and no visual hallucinations Estimated Intelligence: consistent with education level Insight: + limited insight, + poor insight and + severely impaired insight Judgment: + limited judgement and + impaired judgement Vital Signs (Past 24 Hours) Last Vital Signs Temp 36.5 C 01/12/24 06:35 Pulse 80 01/12/24 06:36 Resp 18 01/12/24 06:35 BP 119/81 01/12/24 06:36 Pulse Ox 96 01/10/24 01:43 O2 Del Method Room Air 01/10/24 01:43 Results & Data ([facility]) Current Inpatient Medications Current Inpatient Medications: Current Inpatient Medications Acetaminophen (Acetaminophen 325 Mg Tab) 650 mg PO Q4H PRN PRN Reason: Headache or Minor Fever Stop: 02/02/24 11:18 Acetaminophen (Acetaminophen 325 Mg Tab) 650 mg PO Q4H PRN PRN Reason: Headache or Minor Fever Stop: 02/08/24 17:07 Al Hydrox/Mg Hydrox/Simethicone (Aluminum/Magnesium Susp 30 Ml Udc) 30 ml PO Q4H PRN PRN Reason: GI Upset Stop: 02/02/24 11:18 Last Admin: 01/10/24 16:35 Dose: 30 ml Bismuth Subsalicylate (Bismuth Subsalicylate Liqd 236 Ml) 15 ml PO PRN PRN PRN Reason: Loose Stool Stop: 02/02/24 11:18 Diphenhydramine HCl (Diphenhydramine 50 Mg/Ml Vial) 50 mg IM BID PRN PRN Reason: Agitation Stop: 02/03/24 10:18 Haloperidol Lactate (Haloperidol Lactate 5 Mg/Ml 1 Ml Vial) 5 mg IM BID PRN PRN Reason: Agitation Stop: 02/03/24 10:18 Hydroxyzine HCl (Hydroxyzine Hcl 25 Mg Tab) 50 mg PO HSZ PRN PRN Reason: Insomnia Stop: 02/02/24 11:18 Hydroxyzine HCl (Hydroxyzine Hcl 25 Mg Tab) 25 mg PO Q4H PRN PRN Reason: Anxiety Stop: 02/02/24 11:18 Lorazepam (Lorazepam 2 Mg/1 Ml Vial) 2 mg IM BID PRN PRN Reason: Agitation Stop: 02/03/24 10:18 Magnesium Hydroxide (Magnesium Hydroxide Susp 30 Ml Udc) 30 ml PO DAILY PRN PRN Reason: Constipation Stop: 02/02/24 11:18 Magnesium Oxide (Magnesium Oxide 400 Mg Tab) 400 mg PO [place] Stop: 02/02/24 21:59 Last Admin: 01/11/24 21:37 Dose: 400 mg Multivitamins/Minerals (Cerovite Adv Formula Tab) 1 tab PO QAM [place] Stop: 02/04/24 08:59 Last Admin: 01/12/24 09:00 Dose: 1 tab Olanzapine (Olanzapine Zydis 5 Mg Orally Dis. Tab) 5 mg PO [facility] Stop: 02/08/24 21:59 Last Admin: 01/11/24 21:40 Dose: Not Given Sodium Chloride (Sodium Chloride 0.65% Na Soln 45 Ml ([place])) 1 - 2 sprays NA PRN PRN PRN Reason: Nasal Dryness/Congestion Stop: 02/02/24 11:18 Mental Health & Subst Abuse Tx Psychiatrist Name of Psychiatrist: Dr Savage Psychiatrist's Therapist Name of Therapist: None Estimate Clerk Name of Estimate Clerk: None Post Discharge Appointments Primary Care Physician Name Of Family Doctor/PCP: N/A Contact Information Discharge Discharge Address: [address] [place] [address], [id number]
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
== END 2024-01-15 11:11 | disposition home or self-care (01) | DRG 885 ==
LOC: ED 21:55 → SUATTDRO 01-03 10:49 → 3S 01-03 10:49